=== PATIENT | male | born 1960 | race Caucasian/White ===

== ENCOUNTER 2024-12-26 07:39 | Emergency (ER) | payer OTHER ==
[~2024-12-26] VITALS: Ht 180.3 cm; Wt 74.8 kg
[2024-12-26] MEDS ORDERED: LOTREL 10-40 M1 EACH PO (07:52)
[2024-12-26] MEDS ORDERED: ATORVASTATIN CA40 M1 PO (07:53)
[2024-12-26] MEDS ORDERED: ISOSORBIDE MON120 MG PO (07:53)
[2024-12-26] MEDS ORDERED: GLIMEPIRIDE4 M1 PO (07:53)
[2024-12-26] MEDS ORDERED: HYDROCHLOROTHIA25 M1 PO (07:53)
[2024-12-26] MEDS ORDERED: CEPHALEXIN 500 MG CAP PO ONE (08:00)
[2024-12-26] MEDS ORDERED: CEPHALEXIN500 M1 PO (08:04)
== END 2024-12-26 08:17 | disposition home or self-care (01) ==
LOC: ED 07:39
DX: L73.9 Follicular disorder, unspecified (principal); E11.9 Type 2 diabetes mellitus without complications; Z79.899 Other long term (current) drug therapy